=== PATIENT | female | born 1975 | race Caucasian/White ===

== ENCOUNTER → 2020-12-05 | Outpatient (CLI) | payer MEDICARE ==
[~2020-12-05] MED LIST: BUPR300T3 PO; BUSP15TA PO; CARI3CAP PO; CYCL10TA2 PO; DULA3PEN SQ; GABA600T7 PO; HYDR-2761 PO; HYDR100T24 PO; ISOS30TA19 PO; LABE200T4 PO; LEVO200T5 PO; METF10007 PO; NIFE20CA PO; QUET25TA5 PO; RAMI10CA53 PO; TOPI50TA8 PO
[2020-12-05 14:12] LABS: BASO # 0.1 x10^3/uL (0.0-0.2); BASO % 1 % (0-3); EOS # 0.4 x10^3/uL (0.0-0.7); EOS % 5 % (0-3); HEMATOCRIT 39.3 % (36.0-47.0); HEMOGLOBIN 13.5 g/dL (12.0-15.5); LYMPH # 1.9 x10^3/uL (1.0-4.8); LYMPH % 27 % (24-48); MEAN CORPUSCULAR HEMOGLOBIN 30 pg (25-35); MEAN CORPUSCULAR HGB CONC 34 g/dL (31-37); MEAN CORPUSCULAR VOLUME 88 fL (79-100); MONO # 0.3 x10^3/uL (0.0-1.1); MONO % 5 % (0-9); NEUT # 4.3 x10^3/uL (1.8-7.7); NEUT % 62 % (31-73); PLATELET COUNT 211 x10^3/uL (140-400); RED BLOOD COUNT 4.45 x10^6/uL (3.50-5.40); RED CELL DISTRIBUTION WIDTH 13.9 % (11.5-14.5); WHITE BLOOD COUNT 6.9 x10^3/uL (4.0-11.0)
[2020-12-05 14:21] LABS: PROTHROMBIN TIME PATIENT 12.9 SEC (11.7-14.0)
--- NOTE | 2020-12-05 14:26 | EKG ---
[facility] [address] [place] [address] Test Date: 2020-12-05 Test Time: 14:22:53 Pat Name: SHARON GUIDRY Department: Room: Gender: F Compensation Coordinator: ELYSSA : 1975 Requested By: ROSANNE RIVERA Order Number: [id number] Reading MD: Shola Luong MD Measurements Intervals [place] Rate: 87 P: 21 DC: 162 QRS: -28 QRSD: 88 T: 40 QT: 356 QTc: 429 Interpretive Statements SINUS RHYTHM POOR R WAVE PROGRESSION LAD Electronically Signed On 12-09-2020 9:22:31 CDT by Shola Luong MD
[2020-12-05 14:33] LABS: ALBUMIN 3.2 g/dL (3.4-5.0); ALBUMIN/GLOBULIN RATIO 0.8 (1.0-1.7); CALCIUM 8.9 mg/dL (8.5-10.1); GFR 59.4; POTASSIUM 4.1 mmol/L (3.5-5.1); TOTAL BILIRUBIN 0.5 mg/dL (0.2-1.0); TOTAL PROTEIN 7.2 g/dL (6.4-8.2)
[2020-12-06 00:08] LABS: HEMOGLOBIN A1C 9.5 % (4.8-5.6)
== END ==
LOC: SURGPAT 13:38
PROVIDERS: ATTEND Neurological Surgery
DX: Z01.818 Encounter for other preprocedural examination (principal); M51.9 Unspecified thoracic, thoracolumbar and lumbosacral intervertebral disc disorder; M54.16 Radiculopathy, lumbar region
CPT/HCPCS: 36415; 80053; 83036; 85025; 85610; 85730; 87641; 93005

== ENCOUNTER → 2021-02-10 | Outpatient (CLI) | payer MEDICARE ==
[~2021-02-10] MED LIST changes: +CYCL10TA19 PO; -CYCL10TA2 PO; +FURO80TA3 PO; +METH-562 PO; +OXYC-325 PO; +SENN1TAB62 PO
[2021-02-10 10:57] LABS: PROTHROMBIN TIME PATIENT 13.2 SEC (11.7-14.0)
== END ==
LOC: SURGPAT 09:43
PROVIDERS: ATTEND Neurological Surgery
DX: Z01.818 Encounter for other preprocedural examination (principal); M51.27 Other intervertebral disc displacement, lumbosacral region; M54.16 Radiculopathy, lumbar region; Z91.041 Radiographic dye allergy status
CPT/HCPCS: 36415; 85610; 85730; 87641

== ENCOUNTER 2021-02-18 06:50 | Day surgery (SDC) | payer MEDICARE ==
[2021-02-10 10:02] VITALS: BP 140/81
[~2021-02-18] VITALS: Ht 167.6 cm; Wt 136.0 kg
[~2021-02-18 06:50] MED LIST changes: +DEXAMETHASONE SOD PHOS 4 MG/ML VIAL ONE; +GLYCOPYRROLATE 1 MG/5 ML VIAL. ONE; +HYDROmorphone 2 MG/ML VIAL IVP PRN; +IV RINGERS,LACTATED 1000ML 1,000 ML IV SCH; +LIDOCAINE 2% PF 5 ML VIAL. ONE; -METH-562 PO; +MIDAZOLAM HCL/PF 2 MG/2 ML VIAL. ONE; +MORPHINE SULFATE 2 MG/ML INJ. IVP PRN; +NEOSTIGMINE METHYLSULFATE 5 MG/5 ML SYRINGE. ONE; +ONDANSETRON PF 4 MG/2 ML VIAL. ONE; -OXYC-325 PO; +PHENYLEPHRINE 10 MG/ML VIAL. ONE; +PHENYLEPHRINE in 0.9% NACL PF 1 MG/10 ML SYRINGE. IV ONE; +PROCHLORPERAZINE 10 MG/2 ML VIAL. IVP PRN; +PROPOFOL 10 MG/ML (20ML) VIAL. IV ONE; +PROPOFOL 50 ML IV ONE; +REMIFENTANIL 2 MG VIAL. IV ONE; +ROCURONIUM 50 MG/5 ML VIAL. ONE; -SENN1TAB62 PO; +ceFAZolin SODIUM 3 GM in IV DEXTROSE 5% 100ML 100 ML IV PRN; +fentaNYL PF VIAL 100 MCG/2 ML VIAL IVP PRN; +fentaNYL PF VIAL 250 MCG/5 ML VIAL ONE
[2021-02-18] MEDS ORDERED: GELATIN SPONGE SIZE 100. ONE (07:10)
[2021-02-18] MEDS ORDERED: BUPIVACAINE MPF 0.5% 30 ML VIAL. ONE (07:10)
[2021-02-18] MEDS ORDERED: LIDOCAINE 1%/EPI 1:100,000 20 ML VIAL. ONE (07:10)
[2021-02-18] MEDS ORDERED: THROMBIN TOPICAL 20,000 UNIT SPRAY.SYRN KIT TP ONE (07:11)
[2021-02-18] MEDS ORDERED: INSULIN LISPRO 100 UNIT/ML 3ML VIAL for OP,RR ONLY. SQ PRN (07:15)
[2021-02-18 07:25] VITALS: BP 79/81
[2021-02-18] MEDS ORDERED: SCOPOLAMINE 1.5MG PATCH. TD ONE (07:30)
[2021-02-18] MEDS ORDERED: INSULIN LISPRO 100 UNIT/ML 3ML VIAL for OP,RR ONLY. SQ ONE (08:00)
[2021-02-18] MEDS ORDERED: VANCOMYCIN 1 GM VIAL. ONE (10:13)
--- NOTE | 2021-02-18 10:52 | PDOC ---
BRIEF OPERATIVE NOTE Date: Feb 18, 2021 Pre-Op Diagnosis herniated disk L5-S1, lumbar radiculopathy Post-Op Diagnosis same Procedure Performed right L5-S1 hemilaminotomy and discectomy Surgeon Lana Display Trimmer none Anesthesia Type: General Blood Loss 10mL Specimens Obtained disk and decompression Findings herniated disk L5-S1, neuromonitoring at least baseline throughout Complications none apparent ROSANNE RIVERA MD Feb 18, 2021 10:52
[2021-02-18] MEDS ORDERED: SENN1TAB62 PO (11:02)
[2021-02-18] MEDS ORDERED: OXYC-325 PO (11:02)
[2021-02-18] MEDS ORDERED: METH-562 PO (11:02)
[2021-02-18] MEDS ORDERED: PROPOFOL 50 ML IV ONE ×2 (11:33)
[2021-02-18 11:37] VITALS: BP 156/66
[2021-02-18] MEDS ORDERED: HYDROcodone/APAP 5/325MG 1 TAB TABLET PO ONE (12:00)
--- NOTE | 2021-02-18 12:22 | OP ---
DATE OF SURGERY: 02/18/2021 SURGEON: Bari Schwartz MD. MATTRESS SPRING ENCASER: None. PREOPERATIVE DIAGNOSIS: Herniated disk on the right at L5-S1 with lumbar radiculopathy. POSTOPERATIVE DIAGNOSIS: Herniated disk on the right at L5-S1 with lumbar radiculopathy. PROCEDURE: Right hemilaminotomy and discectomy L5-S1, neuromonitoring, use of microscope ANESTHESIA: General. COMPLICATIONS: None. INDICATIONS FOR PROCEDURE: The patient is a 46-year-old female with significant right lower extremity pain, localized to a largely foraminal disk herniation at L5-S1 on the right. Please refer to the patient's chart for additional detail. DESCRIPTION OF THE PROCEDURE: After informed consent was obtained, the patient was brought to the operating room and was placed under general anesthesia. She was placed in the prone position on the Jason table. All pressure points were checked and padded appropriately. An appropriate incision location was localized with fluoroscopy and the lumbar region was prepped and draped in the usual sterile fashion. Vertical incision was made with 10 blade scalpel, centered over the region of L5 and S1. Dissection was carried out with monopolar electrocautery to dissect the avascular midline to approach the spinous processes of lumbar 5 and sacral 1 and dissection was carried rightward across the lamina at this location. The level was verified with fluoroscopy prior to the initiation of decompression. Right-sided hemilaminotomy was performed at L5-S1. This was performed with a pneumatic drill as well as Kerrison rongeurs. The underlying ligament was gently dissected free from the thecal sac with a blunt nerve hook and removed with Kerrison rongeurs. Neural elements were gently retracted medially and a prominent annulus was identified. An annulotomy was performed with an 11 blade scalpel and pituitary rongeurs were utilized to perform the discectomy. Additional disk material was teased posteriorly from the disk space and removed with a pituitary rongeur. Disk material was also teased posteriorly from the region of the foramina and removed with a pituitary rongeur. Microscopy was utilized for the discectomy portion of the procedure. Once this was complete, the decompression was verified with direct visualization as well as gentle palpation with a Ricci ball probe and a Bhumika. Neuromonitoring potentials were noted to be at least baseline throughout the entire procedure. FloSeal, cottonoids and generous irrigation as well as some use of bipolar electrocautery were utilized to obtain pristine hemostasis. The wound was generously irrigated prior to final closure. Vancomycin powder was instituted within the wound as prophylactic antibiotic. The muscles and fascia were then reapproximated with 0 Vicryl in simple interrupted fashion. Subcutaneous tissue was reapproximated with 2-0 Vicryl in interrupted inverted fashion. The skin was reapproximated with 4-0 Vicryl in a running subcuticular fashion. Mastisol and Steri-Strips were applied and the wound was dressed with Telfa, 4 x 4, and Tegaderm. At the end of procedure, all needle and sponge counts were correct x 2. The patient was extubated in the operating room and taken to recovery in stable condition. There were no intraprocedural complications apparent. ASHLI DR: Yenny TID: [id number] [facility] HOSPITALStefan
--- NOTE | 2021-03-06 22:02 | HP ---
DATE OF SERVICE: 03/06/2021 ADMIT DATE: 02/18/2021 CHIEF COMPLAINT: Back pain and right lower extremity pain. HISTORY OF PRESENT ILLNESS: The patient is a 46-year-old female who presents with low back pain that radiates to the right lower extremity, this has been present for some time and has been gradually progressively getting worse. She denies focal weakness or bowel or bladder changes. She has been refractory to conservative measures. PAST MEDICAL HISTORY: The patient has thyroid dysfunction, diabetes, PCOD, RA diagnosed in 2014, hypertension. PAST SURGICAL HISTORY: She has a history of a lumbar surgery in 1981 and laparoscopic cholecystectomy in 2002. FAMILY HISTORY: She has mother who is alive with a history of a CVA. His father who is alive with her condition. She wears a seatbelt. SOCIAL HISTORY: She is retired, single mother of 1 child. She denies use of tobacco. CURRENT MEDICATIONS: Include Wellbutrin, metoprolol, isosorbide mononitrate and nifedipine. ALLERGIES: TO IODINE. REVIEW OF SYSTEMS: Ten-point review of systems is negative except for the aforementioned. PHYSICAL EXAMINATION: VITAL SIGNS: She is 66 inches tall. She weighs 308 pounds, BMI was 49.71. She rates her pain at 6/10. GENERAL: She is awake, alert and oriented x 4. She is in no acute distress. She is cooperative with the exam. HEENT: Head normocephalic and atraumatic. Neck is supple, nontender. NEUROLOGIC: She moves all extremities with good range of motion. Pulses regular. Respirations are even and nonlabored. Skin turgor is normal. Pulses are equal. No cyanosis, clubbing or edema, is noted in mentation and speech are normal. Comprehends and follows commands without difficulty. Cranial nerves 2-12 are intact bilaterally. Strength is 5/5 throughout all major muscle groups in the bilateral upper and bilateral lower extremities. Deep tendon reflexes are symmetrical nonpathological. Sensation is intact to light touch. Cerebellar function is normal in the upper and lower extremities bilaterally. Ambulation is with a normal stance and stride. IMAGING: She has an MRI of the lumbar spine showing a large left foraminal disk herniation at L5-S1 on the right, corresponding to the distribution of the right lower extremity pain. ASSESSMENT AND PLAN: This is a 46-year-old female with a herniated disk on the right at L5-S1 with lumbar radiculopathy that has been refractory to nonsurgical treatment. Imaging findings and therapeutic options were discussed. The patient felt that she may benefit from surgical decompression a right hemilaminotomy with diskectomy of L5-S1 was discussed with explanation of potential risks, benefits and expectations. After careful consideration of these things, the patient elects to proceed. Plan is for right hemilaminotomy and diskectomy at L5-S1. Will require a preoperative medical clearance and schedule surgery as appropriate. All questions were answered, all in agreement. TD DR: Yenny TID: [id number]
== END 2021-02-18 12:55 | disposition home or self-care (01) ==
LOC: SURG 06:50
PROVIDERS: ATTEND Neurological Surgery
DX: M51.17 Intervertebral disc disorders with radiculopathy, lumbosacral region (principal); I10 Essential (primary) hypertension; G47.30 Sleep apnea, unspecified; E66.9 Obesity, unspecified; E03.9 Hypothyroidism, unspecified; E11.9 Type 2 diabetes mellitus without complications; M10.9 Gout, unspecified; M19.90 Unspecified osteoarthritis, unspecified site; Z90.49 Acquired absence of other specified parts of digestive tract; Z98.890 Other specified postprocedural states; Z91.041 Radiographic dye allergy status; Z88.8 Allergy status to other drugs, medicaments and biological substances
CPT/HCPCS: 63030; 82962; 88304; 88311; 97161; A4213; A4364; A4930; A6258; A6402; J1100; J2250; J2370; J2405; J2704; J2710; J3010; J3370; J3490; 76000; A4452; J1815